=== PATIENT | male | born 1985 | race Caucasian/White ===

== ENCOUNTER 2018-02-27 07:55 | Emergency (ER) | payer MEDICAID ==
[~2018-02-27] VITALS: Ht 165.1 cm; Wt 76.7 kg
[2018-02-27 08:10] VITALS: Ht 165.1 cm; Wt 76.7 kg
[2018-02-27 10:35] VITALS: BP 123/76
== END 2018-02-27 10:35 | disposition home or self-care (01) ==
LOC: ED 07:55
DX: B34.9 Viral infection, unspecified (principal); I10 Essential (primary) hypertension
CPT/HCPCS: 87804; J1885; J7030